=== PATIENT | female | born 1955 | race Caucasian/White ===

== ENCOUNTER → 2017-09-05 | Outpatient (CLI) | payer OTHER ==
[~2017-09-05] MED LIST: IOPAMIDOL (ISOVUE-300) 100 ML BTL ONE
== END ==
LOC: FIMAGING 11:56
PROVIDERS: ATTEND Emergency Medicine
DX: K59.00 Constipation, unspecified (principal); K86.9 Disease of pancreas, unspecified
CPT/HCPCS: Q9967